=== PATIENT | male | born 1945 | race Hispanic/Latino ===

== ENCOUNTER 2021-12-14 06:38 | Day surgery (SDC) | payer MEDICARE ==
--- NOTE | 2021-12-13 14:43 | Short Stay Summary ---
Short Stay Documentation Date of service: 12/13/21 Narrative H&P: Patient is a 76-year-old male with a past medical history of aortic stenosis, cardiomyopathy, history of prostate cancer, left bundle branch block, history of CVA who had recent orthopedic shoulder surgery and has newly developed A. fib. Patient presents for elective cardioversion. - History Past Medical History: atrial fib, stroke, other (See HPI) Past Surgical History: Other (Shoulder surgery) Social history: no significant social history - Physical exam General appearance: no acute distress HEENT: PERRLA Lungs: Clear to auscultation Heart: Other (Irregularly irregular) Gastrointestinal: normal Extremities: no ischemia, pulses intact Neurological: Normal gait, Strength at 5/5 X4 ext - Brief post op/procedure progress note Date of procedure: 12/14/21 Pre-op diagnosis: A. fib Post-op diagnosis: same - Hospital course Hospital course: Patient presents to hospital for elective cardioversion. Patient was successfully cardioverted to normal sinus rhythm. Patient tolerated procedure well. Patient will be discharged home to follow-up as an outpatient. - Disposition Condition at discharge: Good Disposition: 01 HOME / SELF CARE / HOMELESS - Discharge Diagnoses (1) Afib Status: Acute Short Stay Discharge Plan Activity: advance as tolerated Diet: low fat, low cholesterol, low salt Follow up with: DR AKIKO [Other] - 7 Days
[2021-12-14 07:34] LABS: Basophils # (Auto) 0.1 K/mm3 (0.0-0.1); Eosinophils # (Auto) 0.3 K/mm3 (0.0-0.4); Eosinophils % (Auto) 3.5 % (0.0-4.3); Hematocrit 41.2 % (35.5-45.6); Lymphocytes # (Auto) 1.5 K/mm3 (1.2-5.4); Lymphocytes % (Auto) 20.2 % (13.4-35.0); Mean Corpuscular HGB Conc 32 % (32-34); Mean Corpuscular Volume 73 fl (84-94); Monocytes # (Auto) 0.7 K/mm3 (0.0-0.8); Monocytes % (Auto) 9.7 % (0.0-7.3); Platelet Count 221 K/mm3 (140-440); Red Blood Count 5.62 M/mm3 (3.65-5.03); Red Cell Distribution Width 18.2 % (13.2-15.2)
[2021-12-14 07:42] LABS: INR 0.92 (0.87-1.13)
[2021-12-14 07:46] LABS: BUN/Creatinine Ratio 18; Blood Urea Nitrogen 14 mg/dL (9-20); Calcium 9.7 mg/dL (8.4-10.2); Hemolysis Index 4
--- NOTE | 2021-12-14 08:22 | Anesthesia Consultation ---
Anesthesia Consult and Med Hx Date of service: 12/14/21 - Airway Anesthetic Teeth Evaluation: Good (some fillings) ROM Head & Neck: Adequate Mental/Hyoid Distance: Adequate Mallampati Class: Class II Intubation Access Assessment: Probably Good - Pre-Operative Health Status ASA Pre-Surgery Classification: ASA3 Proposed Anesthetic Plan: MAC - Pulmonary Hx Smoking: Yes - Cardiovascular System Hx Hypertension: Yes Hx Coronary Artery Disease: Yes Hx Percutaneous Transluminal Coronary Angioplasty (PTCA): Yes (2019) Hx Cardia Arrhythmia: Yes (atrial fibrillation) Hx Valvular Heart Disease: Yes - Central Nervous System CVA: Yes (left side weakness) - Other Systems Hx Cancer: Yes
--- NOTE | 2021-12-14 08:23 | Anesthesia Day of Surgery ---
Anesthesia Day of Surgery - Day of Surgery Patient Examined: Yes Patient H&P Reviewed: Yes Patient is NPO: Yes
[2021-12-14] MEDS ORDERED: LIDOCAINE MPF (2%) 20 MG/1 ML VIAL 5 ML ONE (08:24)
[2021-12-14] MEDS ORDERED: propofoL 200 MG/20 ML VIAL IV ONE (08:24)
[2021-12-14] MEDS ORDERED: SODIUM CHLORIDE 0.9% 1000 ML 1,000 ML IV SCH (10:00)
--- NOTE | 2021-12-14 10:20 | Post Anesthesia Evaluation ---
- Post Anesthesia Evaluation Patient Participated: Yes Airway Patent: Yes Stable Respiratory Function: Yes Nausea/Vomiting: No Temp > 96.8F: Yes Pain Manageable: Yes Adequeate Hydration: Yes Anesthesia Complications: No
[2021-12-14 10:48] VITALS: BP 176/94
--- NOTE | 2021-12-14 11:19 | Cardiac Catherization Report ---
DATE OF PROCEDURE: 12/14/2021 REFERRING PHYSICIAN: Bonifacio Delatorre MD PROCEDURE: Elective cardioversion of atrial fibrillation. INDICATIONS FOR PROCEDURE: The patient is a pleasant 76-year-old gentleman with new-onset atrial fibrillation several months ago and has been on systemic anticoagulation uninterrupted, here for elective cardioversion. Risks, benefits and alternatives discussed. He remains in atrial fibrillation today. PROCEDURE IN DETAIL: The patient was brought to the cardioversion suite in a postabsorptive state. Anesthesia bedside throughout as well as a registered nurse and information technology director. Once adequate anesthesia was achieved, we used 200 joules biphasic synchronized x 1 successful resumption of sinus rhythm. No complications. The patient tolerated the procedure well. Anesthesia to recover the patient. CONCLUSIONS: Successful elective electrical cardioversion with resumption of sinus rhythm from atrial fibrillation. No complications. Anesthesia recovered the patient, follow up with me in the office. Continue Eliquis therapy. TID: [id number] RECEIPT: [id number] MELINDA/MIRANDA
--- NOTE | 2021-12-14 13:29 | Electrocardiograph Report ---
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
--- NOTE | 2021-12-14 13:32 | Electrocardiograph Report ---
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
== END 2021-12-14 06:39 | disposition home or self-care (01) ==
LOC: CATHLABREC 06:38
PROVIDERS: ATTEND Internal Medicine
DX: I48.91 Unspecified atrial fibrillation (principal); I25.10 Atherosclerotic heart disease of native coronary artery without angina pectoris; I10 Essential (primary) hypertension; K21.9 Gastro-esophageal reflux disease without esophagitis; F32.9 Major depressive disorder, single episode, unspecified; Z85.46 Personal history of malignant neoplasm of prostate; Z88.8 Allergy status to other drugs, medicaments and biological substances; Z79.82 Long term (current) use of aspirin; Z87.891 Personal history of nicotine dependence; Z98.890 Other specified postprocedural states; Z86.73 Personal history of transient ischemic attack (TIA), and cerebral infarction without residual deficits; Z82.49 Family history of ischemic heart disease and other diseases of the circulatory system; Z96.611 Presence of right artificial shoulder joint; Z95.5 Presence of coronary angioplasty implant and graft
CPT/HCPCS: 36415; 80048; 85025; 85610; 85730; 92960; 93005; J2704; J7030